=== PATIENT | female | born 1970 | race Caucasian/White ===

== ENCOUNTER 2018-02-27 15:36 | Emergency (ER) | payer OTHER ==
[~2018-02-27] VITALS: Ht 162.6 cm; Wt 135.7 kg
[2018-02-27 17:45] VITALS: BP 149/81
[2018-02-27 17:59] LABS: CHLORIDE 106 mEq/L (99-109); POTASSIUM 3.5 mEq/L (3.7-5.4); SODIUM 138 mEq/L (136-147)
[2018-02-27 18:01] LABS: GLUCOSE 112 mg/dL (70-99); TOTAL PROTEIN 6.9 g/dL (6.4-8.3)
[2018-02-27 18:03] LABS: TOTAL BILIRUBIN 0.3 mg/dL (0.0-1.0)
[2018-02-27 18:05] LABS: ALKALINE PHOSPHATASE 65 IU/L (3-129); CREATININE 0.8 mg/dL (0.6-1.3); GFR ESTIMATE (CALCULATED) > 59 mL/min/
[2018-02-27 18:06] LABS: UREA NITROGEN (BUN) 17 mg/dL (9-23)
[2018-02-27 18:07] LABS: AST (GOT) 28 IU/L (2-34)
[2018-02-27 18:08] LABS: ALT (GPT) 36 IU/L (3-49)
[2018-02-27 18:11] LABS: HEMOGLOBIN 11.4 G/DL (11.9-15.5); MCH 23.1 PG (29.0-34.0); MCHC 30.8 G/DL (30.0-36.0); MCV 74.9 FL (83-99); PLATELET COUNT 288 K/uL (156-360); RBC DIS.WIDTH-CV 17.4 % (11.8-14.6); RBC DIS.WIDTH-SD 46.5 % (39-53); RED BLOOD COUNT 4.94 M/uL (3.80-5.20); WHITE BLOOD COUNT 9.5 K/uL (4.1-10.2)
[2018-02-27] MEDS ORDERED: TRAMADOL HCL50 MG PO (18:13)
[2018-02-27] MEDS ORDERED: FLEXERIL10 MG PO (18:13)
== END 2018-02-27 18:24 | disposition home or self-care (01) ==
LOC: EME 15:36
PROVIDERS: Physician Assistant
DX: M71.22 Synovial cyst of popliteal space [Baker], left knee (principal); M62.838 Other muscle spasm; E87.6 Hypokalemia; I10 Essential (primary) hypertension; Z87.891 Personal history of nicotine dependence
CPT/HCPCS: 80053; 85027; 93971; 99281; 99284